=== PATIENT | female | born 1950 | race Caucasian/White ===

== ENCOUNTER 2020-08-16 07:27 | Day surgery (SDC) | payer MEDICARE ==
[~2020-08-16] VITALS: Ht 165.1 cm; Wt 68.6 kg
[2020-08-16] MEDS ORDERED: NONE PER PT (08:16)
[2020-08-16 08:30] VITALS: BP 123/78
[2020-08-16] MEDS ORDERED: SODIUM CHLORIDE 0.9% 1,000 ML IV SCH (08:30)
[2020-08-16] MEDS ORDERED: LIDOCAINE 1%, 10ML ONE (08:42)
[2020-08-16 09:18] LABS: INTERNATIONAL NORMALIZED RATIO 1.02 (0.93-1.1); PROTHROMBIN TIME 10.9 Seconds (9.6-11.5)
[2020-08-16] MEDS ORDERED: FLUMAZENIL 0.1 MG/1 ML, 5ML ONE (09:27)
[2020-08-16] MEDS ORDERED: MIDAZOLAM 1 MG/ML, 5ML ONE (09:27)
[2020-08-16] MEDS ORDERED: FENTANYL PF 100 MCG/2ML ONE (09:27)
[2020-08-16] MEDS ORDERED: NALOXONE 1 MG/ML, 2ML ONE (09:27)
== END 2020-08-16 12:00 | disposition home or self-care (01) ==
LOC: OUT 07:27
PROVIDERS: ATTEND Internal Medicine Gastroenterology
DX: K74.60 Unspecified cirrhosis of liver (principal); K75.81 Nonalcoholic steatohepatitis (NASH); I10 Essential (primary) hypertension; Z79.899 Other long term (current) drug therapy; Z88.5 Allergy status to narcotic agent
CPT/HCPCS: 36415; 47000; 76942; 85610; 88307; 88313; 99156; J2250; J3010; J7030; J2310